=== PATIENT | female | born 1945 | race Caucasian/White ===

== ENCOUNTER → 2017-05-01 | Outpatient (CLI) | payer MEDICARE ==
[~2017-05-01] MED LIST: AMLO5TAB2; AMOX-358 PO; LACT1CAP57 PO; LEVO112T55; LORA0.5T; LOSA1TAB70; OXCA300T; SIMV20TA3
[2017-05-01 11:18] LABS: BASOPHILS # (AUTO) 0.1 10^3/uL (0.0-0.1); BASOPHILS % (AUTO) 1 % (0-10); EOSINOPHILS # (AUTO) 0.4 10^3/uL (0.0-0.3); EOSINOPHILS % (AUTO) 4 % (0-10); LYMPHOCYTES # (AUTO) 2.2 X 10^3 (1.0-4.0); LYMPHOCYTES % (AUTO) 23 % (12-44); MEAN CORPUSCULAR HEMOGLOBIN 29 PG (25-34); MEAN CORPUSCULAR HGB CONC 33 G/DL (32-36); MEAN CORPUSCULAR VOLUME 88 FL (80-99); MEAN PLATELET VOLUME 10.5 FL (7.4-10.4); MONOCYTES # (AUTO) 0.9 X 10^3 (0.0-1.0); MONOCYTES % (AUTO) 9 % (0-12); NEUTROPHILS % (AUTO) 63 % (42-75); PLATELET COUNT 277 10^3/uL (130-400); RED BLOOD COUNT 4.37 10^6/uL (4.35-5.85); RED CELL DISTRIBUTION WIDTH 13.2 % (10.0-14.5); WHITE BLOOD COUNT 9.5 10^3/uL (4.3-11.0)
[2017-05-01 11:40] LABS: ALANINE AMINOTRANSFERASE 21 U/L (0-55); ANION GAP 11 MMOL/L (5-14); ASPARTATE AMINO TRANSFERASE 17 U/L (5-34); BILIRUBIN,TOTAL 0.5 MG/DL (0.1-1.0); BLOOD UREA NITROGEN 16 MG/DL (7-18); BUN/CREATININE RATIO 21; CALCIUM 9.5 MG/DL (8.5-10.1); CARBON DIOXIDE 23 MMOL/L (21-32); CHLORIDE 100 MMOL/L (98-107); CHOLESTEROL 149 MG/DL (< 200); CREATININE SERUM 0.77 MG/DL (0.60-1.30); DIRECT LDL 66 MG/DL (1-129); GFR ESTIMATED > 60; GLUCOSE 135 MG/DL (70-105); POTASSIUM 3.5 MMOL/L (3.6-5.0); SODIUM 134 MMOL/L (135-145); TRIGLYCERIDES 132 MG/DL (<150); VLDL CHOLESTEROL 26 MG/DL (5-40)
[2017-05-01 12:00] LABS: THYROID STIMULATING HORMONE 0.21 UIU/ML (0.35-4.94)
--- NOTE | 2017-05-02 13:40 | Diagnostic Imaging Report ---
Bilateral screening mammogram 2D views with tomosynthesis The current study was also evaluated with a Computer Aided Detection (CAD) system. INDICATION: Screening. No current complaints stated on the questionnaire. COMPARISON: 01/01/2016. FINDINGS: There are scattered benign-appearing calcifications. Allowing for technique and positional differences, no suspicious change is seen. IMPRESSION: No significant change. ACR BI-RADS Category 2: Benign findings. Result letter will be mailed to the patient. Note: At least 10% of breast cancer is not imaged by mammography. Dictated on workstation # [id number]
== END ==
LOC: RAD 10:16
PROVIDERS: ATTEND Family Medicine
DX: Z12.31 Encounter for screening mammogram for malignant neoplasm of breast (principal)
CPT/HCPCS: 36415; 77067; 80053; 80061; 84443; 85025

== ENCOUNTER → 2017-06-11 | Outpatient (CLI) | payer MEDICARE ==
[~2017-06-11] MED LIST changes: +LOSA1TAB23; -LOSA1TAB70
== END ==
LOC: LAB 09:39
PROVIDERS: ATTEND Family Medicine
DX: R73.09 Other abnormal glucose (principal)
CPT/HCPCS: 36415; 83036

== ENCOUNTER → 2018-06-10 | Outpatient (CLI) | payer MEDICARE ==
[~2018-06-10] MED LIST changes: -AMLO5TAB2; +AMLO5TAB7; -OXCA300T; +OXCA300T18
== END ==
LOC: RAD 14:54
PROVIDERS: ATTEND Family Medicine
DX: Z12.31 Encounter for screening mammogram for malignant neoplasm of breast (principal)
CPT/HCPCS: 77067

== ENCOUNTER → 2019-06-23 | Outpatient (CLI) | payer MEDICARE ==
[~2019-06-23] MED LIST changes: -AMLO5TAB7; +AMLO5TAB9; +SIMV20TA26; -SIMV20TA3
--- NOTE | 2019-06-23 18:22 | Diagnostic Imaging Report ---
INDICATION: Routine screening. COMPARISON: Comparison is made with prior mammograms from 06/10/2018 and 05/01/2017. TECHNIQUE: 2-D and 3-D bilateral screening mammography was performed. The current study was also evaluated with a Computer Aided Detection (CAD) system. 3-D tomosynthesis was also performed and reviewed. FINDINGS: Both breasts remain heterogeneously dense, limiting the sensitivity of mammography. Fibronodular parenchymal pattern appears to be stable. Benign calcifications in the left breast are stable. Benign calcifications in the right breast are stable. No spiculated mass or malignant-appearing microcalcifications are seen. Axillae are unremarkable. IMPRESSION: No mammographic features suspicious for malignancy are identified. ACR BI-RADS Category 2: Benign findings. Result letter will be mailed to the patient. Note: At least 10% of breast cancer is not imaged by mammography. Dictated by: Dictated on workstation # [id number]
== END ==
LOC: RAD 14:49
PROVIDERS: ATTEND Family Medicine
DX: Z12.31 Encounter for screening mammogram for malignant neoplasm of breast (principal)
CPT/HCPCS: 77067

== ENCOUNTER 2020-05-17 05:32 | Outpatient (RCR) | payer MEDICARE ==
[~2020-05-17] VITALS: Ht 152 cm; Wt 68.1 kg
[~2020-05-17 05:32] MED LIST changes: +AMLO-250; +AMLO-250 PO; -AMLO5TAB9; +C,E,1CAP PO; +CALC-654 PO; +LEVO88TA54 PO; +LORA-404 PO; +LOSA1TAB23 PO; +MULT-1029 PO; +OXCA300T18 PO; +POTA99TA21 PO; +SIMV20TA26 PO
== END 2020-05-17 09:46 | disposition home or self-care (01) ==
LOC: PREOP 05:32
PROVIDERS: ATTEND Internal Medicine
DX: Z01.812 Encounter for preprocedural laboratory examination (principal); Z20.828 Contact with and (suspected) exposure to other viral communicable diseases
CPT/HCPCS: 87635

== ENCOUNTER 2020-05-19 08:06 | Day surgery (SDC) | payer MEDICARE ==
--- NOTE | 2020-05-09 17:51 | HISTORY AND PHYSICAL ---
DATE OF SERVICE: COLONOSCOPY HISTORY AND PHYSICAL HISTORY OF PRESENT ILLNESS: The patient is a 74-year-old white female referred by Dr. Potter for colonoscopy. Over the past several months, she has noted bright red blood per rectum. It is typically associated with constipation and associated with pain on defecation reportedly not severe. Colonoscopy had been recommended in the past, but she has not accomplished screening colonoscopy as the patient had apparently refused. Because of the onset of bleeding, she is now ready to proceed with the procedure. She denies associated abdominal pain or cramping or diarrhea, but does have constipation. She states that her weight has been stable and she denies night sweats, chills or fever. FAMILY HISTORY: Mother at the age of 91 reported natural causes. Father at age of 48 of a hemorrhagic CVA, possibly aneurysmal in nature. She has 3 sisters, one reportedly diagnosed with breast cancer in her late 20s still living at the age of 80 and one brother, who has worked related lung disease. She is not aware of any family history for GI tract malignancy including colon cancer. PAST MEDICAL HISTORY: Significant for hypertension, bipolar affective disorder, Alexis's thyroiditis, on thyroid replacement and hyperlipidemia, on statin therapy. MEDICATIONS ON ADMISSION: Include oxcarbazepine for bipolar 300 mg b.i.d., losartan HCT 100/25 daily, amlodipine 5 mg each evening, simvastatin 20 mg daily, L-thyroxine 100 mg daily, lorazepam 0.5 mg one each evening. She is on myyz-zaz-ewdsiws potassium 99 mg supplement twice a day, calcium with vitamin D, Ocuvite daily and Centrum Silver daily. SOCIAL HISTORY: She is with two children, 49-vhya-zsco smoking history, but quit in 1993 with no history of alcohol consumption. PAST SURGICAL HISTORY: Appendectomy noted in the 50s. She had a lumpectomy for benign reasons in 2011, a in 1968 and 1970. Meniscal repair in 2009 and a tonsillectomy and adenoidectomy performed in 1949s. PHYSICAL EXAMINATION: GENERAL: Reveals a white female, who appeared to be in no acute distress, little anxious. VITAL SIGNS: Weight 150.8 pounds and blood pressure 132/84. CHEST: Clear. CARDIOVASCULAR: Reveals regular rate and rhythm without murmur, S3 or S4. ABDOMEN: Soft, supple without mass, organomegaly or tenderness. EXTREMITIES: Reveal no cyanosis, clubbing or edema. ASSESSMENT AND PLAN: The patient was set up for screening colonoscopy. She has a history of hematochezia with mild rectal pain following constipation, suspect for underlying fissure, will be evaluating for this at the time of her procedure. Prep instructions were given, questions were answered and the patient was advised to continue stool softeners daily. As her constipation may be temporarily associated with the initiation of amlodipine, might consider a non-calcium channel jerilyn substitute to try to help with avoidance of constipation. I thank you for the referral of this pleasant lady. Job ID: [id number] DocumentID: [id number] Dictated Date: 05/09/2020 16:23:07 Tearer Date: 05/09/2020 16:54:10 Dictated By: CAROLANN HENRIQUEZ MD
[2020-05-19] VITALS (8 sets, daily range): BP systolic 102–170; BP diastolic 49–68
[2020-05-19] MEDS ORDERED: LACTATED RINGERS 1,000 ML IV STA (08:14)
[2020-05-19] MEDS ORDERED: LACTATED RINGERS 1,000 ML IV ONE (08:18)
--- NOTE | 2020-05-19 08:39 | Pre-Op Note & Conscious Sedat ---
Pre-Operative Progress Note H&P Reviewed The H&P was reviewed, patient examined and no changes noted. Date H&P Reviewed: May 19, 2020 Time H&P Reviewed: 08:38 Conscious Sedation Pre-Proced ASA Score 2 For ASA 3 and 4: Consider anesthesia and medical clearance. Also, for patients with a history of failed moderate sedation consider anesthesia. Airway Lungs Heart ASA score ASA 1: a normal healthy patient ASA 2: a patient with a mild systemic disease (mid diabetes, controlled hypertension, obesity ASA 3: a patient with a severe systemic disease that limits activity (angina, COPD, prior Myocardial infarction) ASA 4: a patient with an incapacitating disease that is a constant threat to life (CHF, renal failure) ASA 5: a moribund patient not expected to survive 24 hrs. (ruptured aneurysm) ASA 6: a declared brain- patient whose organs are being harvested. For emergent operations, add the letter E after the classification Mallampati Classification Grade 2 Sedation Plan Analgesia, Amnesia, Plan communicated to team members, Discussed options with patient/fam, Discussed risks with patient/fam The patient is an appropriate candidate to undergo the planned procedure, sedation, and anesthesia. The patient immediately re-assessed prior to indication. CAROLANN HENRIQUEZ MD May 19, 2020 08:39
[2020-05-19] MEDS ORDERED: LIDOCAINE JELLY 2% 6 ML SYRINGE TOP ONE (08:45)
[2020-05-19] MEDS ORDERED: LIDOCAINE JELLY 2% 6 ML SYRINGE ONE (08:47)
[2020-05-19] MEDS ORDERED: MIDAZOLAM 2 MG/2 ML (VERSED) VIAL ONE (09:04)
[2020-05-19] MEDS ORDERED: PROPOFOL INJECTION 50 ML IV ONE (09:04)
[2020-05-19] MEDS ORDERED: POLY119P12 PO (10:10)
--- NOTE | 2020-05-19 18:36 | OPERATIVE REPORT ---
DATE OF SERVICE: COLONOSCOPY SUMMARY INDICATION FOR THE PROCEDURE: Screening colonoscopy. DESCRIPTION OF PROCEDURE: The patient was placed in the left lateral decubitus position. Prior to undergoing colonoscopy, digital rectal evaluation was performed. Anal sphincter tone was normal and the perianal reflex was intact. Careful inspection of anal canal revealed no evidence for fissure formation on digital inspection nor later on visual inspection. No palpable abnormalities were noted on digital inspection of anal canal or distal rectal vault. The colonoscope was then inserted into the rectum and under direct visualization advanced to cecum. The cecum was identified by identification of ileocecal valve and cecal strap. Photographic documentation was obtained. Careful inspection was made as the endoscope was withdrawn. Procedure was done under Diprivan anesthesia and the quality of prep was good. FINDINGS: There was no evidence for internal hemorrhoids, but there were grade I internal hemorrhoids noted nonthrombosed. The rectum was unremarkable as was the sigmoid colon, no evidence for diverticular disease was noted. Present in the distal descending colon was a diminutive sessile polyp was photographed and biopsied and ablated with no subsequent blood loss. The remainder of the descending colon, splenic flexure, transverse colon, hepatic flexure, ascending colon and cecum were unremarkable. ASSESSMENT: 1. Diminutive polyp was removed via hot forceps from the distal descending colon. As long as there are no surprise on histopathology report considering this patient's age, would not advocate future screening colonoscopy. 2. No evidence for diverticular disease was noted. 3. Several grade I internal hemorrhoid complexes were noted, the likely source of this patient's bleeding with the passage of hard stool. I did not palpate or visualize evidence for anal fissure at the time of the procedure. I did advise the patient initiate MiraLax 1 capful with 8 ounces of fluid daily. I thank you for the referral of this pleasant lady. Job ID: [id number] DocumentID: [id number] Dictated Date: 05/19/2020 10:16:27 Raw Silk Grader Date: 05/19/2020 18:35:09 Dictated By: CAROLANN HENRIQUEZ MD [facility]
== END 2020-05-19 10:30 | disposition home or self-care (01) ==
LOC: ENDO 08:06
PROVIDERS: ATTEND Internal Medicine
DX: Z12.11 Encounter for screening for malignant neoplasm of colon (principal); D12.4 Benign neoplasm of descending colon; K64.0 First degree hemorrhoids; I10 Essential (primary) hypertension; E03.9 Hypothyroidism, unspecified; F31.9 Bipolar disorder, unspecified; E06.3 Autoimmune thyroiditis; E78.5 Hyperlipidemia, unspecified; M06.9 Rheumatoid arthritis, unspecified; Z79.899 Other long term (current) drug therapy; Z88.8 Allergy status to other drugs, medicaments and biological substances; Z87.891 Personal history of nicotine dependence; Z80.3 Family history of malignant neoplasm of breast
CPT/HCPCS: 88305

== ENCOUNTER 2021-07-03 21:33 | Emergency (ER) | payer MEDICARE ==
[~2021-07-03] VITALS: Ht 152 cm; Wt 69.9 kg
[~2021-07-03 21:33] MED LIST changes: +POLY119P12 PO; -POTA99TA21 PO; +POTA99TA26 PO
--- NOTE | 2021-07-03 22:05 | ED General ---
General Chief Complaint: Cardiac/General Problems Stated Complaint: HIGH BP 207/90 Nursing Triage Note: C/O HIGH BLOOD PRESSURE, "NOT FEELING RIGHT" SINCE 193. HAS NOT HAD PM MEDICATIONS. ALSO CONCERNED ABOUT LEFT WRIST FX FROM FALL Source of Information: Patient, Other (DAUGHTER) History of Present Illness Date Seen by Provider: Jul 03, 2021 Time Seen by Provider: 21:50 Initial Comments PT ARRIVES VIA POV FROM HOME STATES SHE "HASN'T FELT RIGHT" SINCE 1929 LAURA NIECE CAME OVER LAURA AND CHECKED HER BLOOD PRESSURE AND IT WAS ELEVATED AT 207/90+ STATES SHE FEELS "FUZZY HEADED" SLIGHT DIZZINESS NO HEADACHE NO VISION CHANGES NO PARESTHESIAS OR MOTOR DEFICITS NO CHEST PAIN NO SHORTNESS OF BREATH NO PALPITATIONS NO NAUSEA/VOMITING PT TAKES MEDICATION FOR BLOOD PRESSURE HAS NOT TAKEN ANY OF HER EVENING MEDICATIONS NO NEW MEDICATIONS OR CHANGES IN DOSES PT IS NOT ON ASPIRIN OR BLOOD THINNERS NO FEVER OR RECENT ILLNESS PT STATES SHE FELL OFF HER PORCH ON Friday06/30/21 DOES NOT RECALL EVENTS JUST BEFORE IT HAPPENED, ONLY REMEMBERS "WAKING UP" ON THE GROUND DOES NOT KNOW WHY SHE FELL, DOES NOT RECALL THE FALL ITSELF, ONLY REMEMBERS AFTER[facility] DID NOT SEEK CARE UNTIL FRIDAY--WENT TO DR. PAIGE'S OFFICE ON FRIDAY FOR LEFT WRIST INJURY AND WAS FOUND TO HAVE A BROKEN WRIST, AND WAS PLACED IN ALUMINUM- FOAM SPLINT, HAS FOLLOW UP APPOINTMENT NEXT FRIDAY HAS NOT TAKEN ANYTHING FOR PAIN --WAS TOLD SHE COULD TAKE IBUPROFEN, BUT HAS NOT BEEN TAKING IT OR ANYTHING ELSE FOR PAIN PCP: DR. DAMICO ORTHOPEDIC SURGEON: DR. PAIGE Allergies and Home Medications Allergies Coded Allergies: lithium (Verified Allergy, Mild, CAUSED PROBLEMS WITH EYE, 05/11/20) Patient Home Medication List Home Medication List Reviewed: Yes Amlodipine Besylate (Amlodipine Besylate) 5 Mg Tablet, 5 MG PO DAILY, (Reported) Entered as Reported by: BELKIS RAIMREZ on 05/11/20 7224 Last Action: Last Taken Edited C,E,Zinc,Copper 11/Afdfc5c/Lut (Ocuvite Adult 50 Plus Softgel) 1 Each Capsule, 1 EACH PO DAILY, (Reported) Entered as Reported by: BELKIS RAMIREZ on 05/11/20 3592 Calcium Carbonate/Vitamin D3 (Calcium 500 + D Tablet) 1 Each Tablet, 1 EACH PO DAILY, (Reported) Entered as Reported by: BELKIS RAMIREZ on 05/11/201543 Levothyroxine Sodium (Levothyroxine Sodium) 88 Mcg Tablet, 88 MCG PO DAILY, (Reported) Entered as Reported by: BELKIS RAMIREZ on 05/11/201543 Lorazepam (Ativan) 0.5 Mg Tablet, 0.5 MG PO DAILY PRN for ANXIETY, (Reported) Entered as Reported by: BELKIS RAMIREZ on 05/11/201543 Losartan/Hydrochlorothiazide (Losartan-Hctz 100-25 mg Tab) 1 Each Tablet, 1 EACH PO DAILY, (Reported) Entered as Reported by: BELKIS RAMIREZ on 05/11/201543 Last Action: Last Taken Edited Multivit-Min/FA/Lycopene/Lut (Centrum Silver Tablet) 1 Each Tablet, 1 EACH PO DAILY, (Reported) Entered as Reported by: BELKIS RAMIREZ on 05/11/201543 Oxcarbazepine (Oxcarbazepine) 300 Mg Tablet, 300 MG PO BID, (Reported) Entered as Reported by: BELKIS RAMIREZ on 05/11/201543 Last Action: Last Taken Edited Polyethylene Glycol 3350 (Glycolax) 119 Gm Powder, 119 GM PO DAILY PRN for CONSTIPATION Prescribed by: DL ESPARZA on 05/19/20 1010 Potassium Gluconate (Potassium) 99 Mg Tablet, 198 MG PO BID, (Reported) Entered as Reported by: BELKIS RAMIREZ on 05/11/201543 Simvastatin (Simvastatin) 20 Mg Tablet, 20 MG PO DAILY, (Reported) Entered as Reported by: BELKIS RAMIREZ on 05/11/201543 Last Action: Last Taken Edited Review of Systems Review of Systems Constitutional: see HPI, dizziness EENTM: no symptoms reported Respiratory: no symptoms reported Cardiovascular: no symptoms reported Gastrointestinal: no symptoms reported Genitourinary: no symptoms reported Musculoskeletal: see HPI Skin: no symptoms reported Psychiatric/Neurological: Anxiety; Denies Headache, Denies Numbness, Denies P aresthesia, Denies Seizure, Denies Tingling, Denies Tremors, Denies Weakness Hematologic/Lymphatic: No Symptoms Reported Immunological/Allergic: no symptoms reported Past Bncjwuh-Trzroc-Pozvie Hx Patient Social History Tobacco Use?: Yes Smoking Status: Former Smoker Substance use?: No Alcohol Use?: No Pt feels they are or have been: No Immunizations Up To Date PED Vaccines UTD: No Seasonal Allergies Seasonal Allergies: Yes Past Medical History Surgery/Hospitalization HX: DENTAL, APPY, C-SECT, ANXIETY, HTN, GERD, HIGH CHOLESTEROL, BIPOLAR Surgeries: Yes (TEETH) Appendectomy, Section Respiratory: No Cardiac: Yes High Cholesterol, Hypertension Neurological: No [employer] PROGRAM[employer] History: Menopausal Sexually Transmitted Disease: No HIV/AIDS: No Genitourinary: No Gastrointestinal: Yes Gastroesophageal Reflux, Chronic Constipation Musculoskeletal: Yes (LEFT WRIST FX 06/30/21) Arthritis Endocrine: Yes Hypothyroidsim HEENT: Yes (GLASSES, UPPER DENTURES) Loss of Vision: Denies Hearing Impairment: Denies Cancer: No Psychosocial: Yes Anxiety, Bipolar Integumentary: No Blood Disorders: No Adverse Reaction/Blood Tranf: No (N/A) Family Medical History SOCIAL HISTORY: -SMOKED < 1 PPD, QUIT 1993 -ETOH--RARE USE -DRUGS-DENIES USE PAST SURGICAL HISTORY: -DENTAL SURGERY -APPENDECTOMY - Physical Exam Vital Signs Vital Signs - First Documented 07/03/21 21:50 Temp 36.3 Pulse 96 Resp 16 B/P (MAP) 206/88 (127) Pulse Ox 96 O2 Delivery Room Air Capillary Refill : Less Than 3 Seconds Height, Weight, BMI Height: 5'" Weight: 160lbs. oz. 72.933347af; 30.00 BMI Method:Stated General Appearance: No Apparent Distress, WD/WN HEENT: PERRL/EOMI, Other (NO EXTERNAL EVIDENCE OF TRAUMA TO HEAD) Neck: Normal Inspection, Non Tender Respiratory: Chest Non Tender, Normal Breath Sounds, No Accessory Muscle Use, No Respiratory Distress Cardiovascular: Regular Rate, Rhythm, No Edema, No JVD, No Murmur, Normal Peripheral Pulses Gastrointestinal: Non Tender, Soft Back: Normal Inspection Extremity: No Pedal Edema, Other (LEFT FOREARM/WRIST IN ALUMINUM-FOAM SPLINT, FINGERS MILDLY SWOLLEN, BUT DISTAL MOTOR/SENSORY/VASCULAR INTACT. NO OTHER EVIDENCE OF TRAUMA TO OTHER EXTREMITIES. 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 Norm as Tested Skin: Normal Color, Warm/Dry Progress/Results/Core Measures Suspected Sepsis SIRS Temperature: Pulse: 96 Respiratory Rate: 16 Laboratory Tests 07/03/21 22:06: White Blood Count 13.2H Blood Pressure 206 /88 Mean: 127 Laboratory Tests 07/03/21 22:06: Creatinine 0.84, Platelet Count 244, Total Bilirubin 0.4 Results/Orders Lab Results Laboratory Tests Test 07/03/21 22:06 Range/Units White Blood Count 13.2 H 4.3-11.0 10^3/uL Red Blood Count 4.09 3.80-5.11 10^6/uL Hemoglobin 12.5 11.5-16.0 g/dL Hematocrit 36 35-52 % Mean Corpuscular Volume 88 80-99 fL Mean Corpuscular Hemoglobin 31 25-34 pg Mean Corpuscular Hemoglobin Concent 35 32-36 g/dL Red Cell Distribution Width 12.5 10.0-14.5 % Platelet Count 244 130-400 10^3/uL Mean Platelet Volume 9.7 9.0-12.2 fL Immature Granulocyte % (Auto) 0 % Neutrophils (%) (Auto) 70 42-75 % Lymphocytes (%) (Auto) 17 12-44 % Monocytes (%) (Auto) 8 0-12 % Eosinophils (%) (Auto) 4 0-10 % Basophils (%) (Auto) 1 0-10 % Neutrophils # (Auto) 9.3 H 1.8-7.8 10^3/uL Lymphocytes # (Auto) 2.3 1.0-4.0 10^3/uL Monocytes # (Auto) 1.0 0.0-1.0 10^3/uL Eosinophils # (Auto) 0.5 H 0.0-0.3 10^3/uL Basophils # (Auto) 0.1 0.0-0.1 10^3/uL Immature Granulocyte # (Auto) 0.1 0.0-0.1 10^3/uL Sodium Level 131 L 135-145 MMOL/L Potassium Level 3.7 3.6-5.0 MMOL/L Chloride Level 95 L 98-107 MMOL/L Carbon Dioxide Level 23 21-32 MMOL/L Anion Gap 13 5-14 MMOL/L Blood Urea Nitrogen 12 7-18 MG/DL Creatinine 0.84 0.60-1.30 MG/DL Estimat Glomerular Filtration Rate 66 BUN/Creatinine Ratio 14 Glucose Level 133 H 70-105 MG/DL Calcium Level 9.7 8.5-10.1 MG/DL Corrected Calcium 9.6 8.5-10.1 MG/DL Magnesium Level 1.7 1.6-2.4 MG/DL Total Bilirubin 0.4 0.1-1.0 MG/DL Aspartate Amino Transf (AST/SGOT) 17 5-34 U/L Alanine Aminotransferase (ALT/SGPT) 19 0-55 U/L Alkaline Phosphatase 105 40-136 U/L Total Protein 7.2 6.4-8.2 GM/DL Albumin 4.1 3.2-4.5 GM/DL Carbamazepine (Tegretol) Level < 2.0 L 4.0-12.0 UG/ML My Orders Orders - LITO COLMENARES DO Ed Iv/Invasive Line Start (07/03/21 21:59) Monitor-Rhythm Ecg Trace Only (07/03/21 21:59) Ct Head Wo (07/03/21 21:59) Chest 1 View, Ap/Pa Only (07/03/21 21:59) Carbamazepine (Tegretol) (07/03/21 21:59) Cbc With Automated Diff (07/03/21 21:59) Comprehensive Metabolic Panel (07/03/21 21:59) Magnesium (07/03/21 21:59) Hydralazine Injection (Apresoline Inject (07/03/21 23:15) Medications Given in ED Current Medications Medications Dose Ordered Sig/Ugo Route Start Time Stop Time Status Last Admin Dose Admin Hydralazine HCl 10 mg ONCE ONCE IV 07/03/21 23:15 07/03/21 23:16 DC 07/03/21 23:19 10 MG Vital Signs/I&O 07/03/21 07/03/21 21:50 23:47 Temp 36.3 36.5 Pulse 96 98 Resp 16 20 B/P (MAP) 206/88 (127) 165/59 Pulse Ox 96 96 O2 Delivery Room Air Room Air Capillary Refill : Less Than 3 Seconds Blood Pressure Mean: 127 Progress Note : Progress Note GIVEN IV HYDRALAZINE FOR ELEVATED BLOOD PRESSURE BP DOWN TO 165/59 AT DISMISSAL UNEVENTFUL ER STAY PT STATES SHE FEELS BETTER AT DISMISSAL PT STATES SHE HAS BEEN HAVING LOW SODIUM LEVELS AND WAS TOLD BY DR. DAMICO TO DRINK 8 OZ OF GATORADE A DAY Diagnostic Imaging Comments CT HEAD--PER RADIOLOGIST REPORT AT 2314 There are no extra-axial fluid collections. No intracranial hemorrhage. No intracranial mass or mass effect. No midline shift. The ventricles are normal in size and position. There were no focal parenchymal abnormalities in the brain. Calvarial windows appear unremarkable. IMPRESSION: Negative noncontrast brain CT. CXR--PER RADIOLOGIST REPORT AT 2314 Heart is borderline in size. There is mild central vascular prominence. There are chronic appearing increased basilar markings. There is no new infiltrate or pneumothorax or pleural fluid. There is no overt bony abnormality in the chest. IMPRESSION: Cardiomegaly and mild central vascular prominence. Chronic appearing increased basilar markings with no acute abnormality. Reviewed: Reviewed by Me Departure Impression Primary Impression: HTN (hypertension) Additional Impressions: POSSIBLE HEAD INJURY WITH BRIEF LOSS OF CONSCIOUSNESS RECENT LEFT WRIST FRACTURE MILD HYPONATREMIA Disposition: 01 HOME, SELF-CARE Condition: Stable Departure-Patient Inst. Referrals: RADHA DAMICO MD (PCP/Family) Primary Care Physician Patient Instructions: DASH Diet, High Blood Pressure (DC), Minor Head Injury (DC) Add. Discharge Instructions: TAKE YOUR MEDICATIONS PRESCRIBED TAKE TYLENOL NEEDED FOR PAIN FOLLOW UP WITH DR. DAMICO THIS WEEK FOR FURTHER CARE OF BLOOD PRESSURE FOLLOW UP WITH DR. PAIGE ON FRIDAY SCHEDULED All discharge instructions reviewed with patient and/or family. Voiced understanding. LITO COLMENARES DO Jul 03, 2021 22:05
[2021-07-03 22:15] LABS: BASOPHILS # (AUTO) 0.1 10^3/uL (0.0-0.1); BASOPHILS % (AUTO) 1 % (0-10); EOSINOPHILS # (AUTO) 0.5 10^3/uL (0.0-0.3); EOSINOPHILS % (AUTO) 4 % (0-10); HEMATOCRIT 36 % (35-52); HEMOGLOBIN 12.5 g/dL (11.5-16.0); LYMPHOCYTES # (AUTO) 2.3 10^3/uL (1.0-4.0); LYMPHOCYTES % (AUTO) 17 % (12-44); MEAN CORPUSCULAR HEMOGLOBIN 31 pg (25-34); MEAN CORPUSCULAR HGB CONC 35 g/dL (32-36); MEAN CORPUSCULAR VOLUME 88 fL (80-99); MEAN PLATELET VOLUME 9.7 fL (9.0-12.2); MONOCYTES % (AUTO) 8 % (0-12); NEUTROPHILS # (AUTO) 9.3 10^3/uL (1.8-7.8); NEUTROPHILS % (AUTO) 70 % (42-75); PLATELET COUNT 244 10^3/uL (130-400); WHITE BLOOD COUNT 13.2 10^3/uL (4.3-11.0)
[2021-07-03 22:28] LABS: ALBUMIN 4.1 GM/DL (3.2-4.5)
[2021-07-03 22:29] LABS: CHLORIDE 95 MMOL/L (98-107); POTASSIUM 3.7 MMOL/L (3.6-5.0); SODIUM 131 MMOL/L (135-145)
[2021-07-03 22:30] LABS: CALCIUM 9.7 MG/DL (8.5-10.1)
[2021-07-03 22:31] LABS: GLUCOSE 133 MG/DL (70-105); TOTAL PROTEIN 7.2 GM/DL (6.4-8.2)
[2021-07-03 22:32] LABS: CARBON DIOXIDE 23 MMOL/L (21-32)
[2021-07-03 22:33] LABS: BILIRUBIN,TOTAL 0.4 MG/DL (0.1-1.0)
[2021-07-03 22:34] LABS: ALKALINE PHOSPHATASE 105 U/L (40-136)
[2021-07-03 22:35] LABS: CREATININE SERUM 0.84 MG/DL (0.60-1.30); GFR ESTIMATED 66
[2021-07-03 22:36] LABS: BUN/CREATININE RATIO 14
[2021-07-03 22:37] LABS: ALANINE AMINOTRANSFERASE 19 U/L (0-55)
[2021-07-03 22:38] LABS: MAGNESIUM 1.7 MG/DL (1.6-2.4)
[2021-07-03 22:55] LABS: CARBAMAZEPINE (TEGRETOL) < 2.0 UG/ML (4.0-12.0)
--- NOTE | 2021-07-03 23:12 | Diagnostic Imaging Report ---
INDICATION: Fall with head injury. TECHNIQUE: Multiple contiguous axial images were obtained through the brain without the use of intravenous contrast. Auto Exposure Controls were utilized during the CT exam to meet ALARA standards for radiation dose reduction. There is no prior head CT for comparison. There are no extra-axial fluid collections. No intracranial hemorrhage. No intracranial mass or mass effect. No midline shift. The ventricles are normal in size and position. There were no focal parenchymal abnormalities in the brain. Calvarial windows appear unremarkable. IMPRESSION: Negative noncontrast brain CT. Dictated by: Dictated on workstation # [id number]
--- NOTE | 2021-07-03 23:13 | Diagnostic Imaging Report ---
INDICATION: Fall with chest pain Frontal chest obtained at 1105 p.m. and compared to 10/13/2013. Heart is borderline in size. There is mild central vascular prominence. There are chronic appearing increased basilar markings. There is no new infiltrate or pneumothorax or pleural fluid. There is no overt bony abnormality in the chest. IMPRESSION: Cardiomegaly and mild central vascular prominence. Chronic appearing increased basilar markings with no acute abnormality. Dictated by: Dictated on workstation # [id number]
[2021-07-03] MEDS ORDERED: hydrALAZINE (APESOLINE) 20 MG/ML VIAL IV ONE (23:15)
[2021-07-03 23:47] VITALS: BP 165/59
== END 2021-07-03 23:50 | disposition home or self-care (01) ==
LOC: EDUNIT# 21:33 → ER 21:36
DX: I10 Essential (primary) hypertension (principal); E87.1 Hypo-osmolality and hyponatremia; E78.00 Pure hypercholesterolemia, unspecified; E03.9 Hypothyroidism, unspecified; F41.9 Anxiety disorder, unspecified; F31.9 Bipolar disorder, unspecified; Z87.891 Personal history of nicotine dependence; Z79.890 Hormone replacement therapy; Z79.899 Other long term (current) drug therapy
CPT/HCPCS: 36415; 70450; 71045; 80053; 80156; 83735; 85025; 93041

== ENCOUNTER → 2021-07-19 | Outpatient (CLI) | payer MEDICARE ==
--- NOTE | 2021-07-19 13:23 | Diagnostic Imaging Report ---
PROCEDURE: US carotid duplex, bilateral. TECHNIQUE: Multiple real-time grayscale images were obtained over the carotid arteries in various projections, bilaterally. Additional spectral analysis and color Doppler duplex images were also obtained. INDICATION: Hypertension There are no prior studies available for comparison. There is mild soft plaque formation in both carotid systems. The flow velocities failed to show any sign of a hemodynamically significant stenosis of the common or internal carotid arteries. Both vertebral arteries were noted. There was antegrade flow bilaterally. IMPRESSION: There is mild atherosclerotic disease involving both carotid systems. There is no sign of a hemodynamically significant stenosis of the common or internal carotid arteries however. Parameters based on the consensus panel Pierce-Scale and Doppler ultrasound criteria published May 2003, Radiology, Volume 229. DOPPLER (peak systolic velocity M/S Right Left CCA .75 .75 ICA Proximal .94 .83 ICA Mid .79 .81 ICA Distal 1.03 1.07 RATIO 1.37 1.42 ECA .67 1.36 VERT .47 .35 Dictated by: Dictated on workstation # [id number]
== END ==
LOC: RAD 12:00
PROVIDERS: ATTEND Nurse Practitioner Family
DX: I65.23 Occlusion and stenosis of bilateral carotid arteries (principal); I10 Essential (primary) hypertension
CPT/HCPCS: 93880